=== PATIENT | male | born 1990 | race African-American/Black ===

== ENCOUNTER 2022-03-30 14:28 | Emergency (ER) | payer OTHER ==
[2022-03-30 15:04] VITALS: BP 114/63; PULSE 62; TEMP 98; BMI 22.3
== END 2022-03-30 17:35 | disposition home or self-care (01) ==
LOC: JER 14:28
DX: F14.10 Cocaine abuse, uncomplicated (principal)
CPT/HCPCS: 99281-25

== ENCOUNTER 2022-03-30 18:01 | Inpatient (IN) | payer OTHER ==
[2022-03-30 18:38] VITALS: BMI 19.9
[2022-03-30] MEDS ORDERED: P-EPHED 60MG/TRIPROLIDI 2.5MG TABLET PO PRN (18:58)
[2022-03-30] MEDS ORDERED: MAG HYDROX/AL HYDROX/SIMETH 30 ML UNIT-DOSE CUP PO PRN (18:58)
[2022-03-30] MEDS ORDERED: ACETAMINOPHEN 325 MG TABLET (FP) PO PRN (18:58)
[2022-03-30] MEDS ORDERED: MAGNESIUM HYDROX 2400MG/30ML ORAL SUSPENSION 30 ML CUP PO PRN (18:58)
[2022-03-30] MEDS ORDERED: IBUPROFEN 400 MG TABLET (FP) PO PRN (18:58)
[2022-03-30] MEDS ORDERED: MAGNESIUM CITRATE 300 ML BOTTLE PO PRN (18:58)
[2022-03-30] MEDS ORDERED: LOPERAMIDE HCL 2 MG CAPSULE PO PRN (18:58)
[2022-03-30] MEDS ORDERED: guaiFENesin 200 MG/10 ML 10 ML UNIT-DOSE CUPS PO PRN (18:58)
[2022-03-30] MEDS ORDERED: NICOTINE 10 MG CARTRIDGE (INHALER) IH PRN (18:58)
[2022-03-30] MEDS ORDERED: MELATONIN 5 MG TABLETS PO SCH (22:00)
[2022-03-30] MEDS ORDERED: THIAMINE HCL 100 MG TABLET (FP) PO SCH (22:00)
[2022-03-31] MEDS: hydrOXYzine PAMOATE 25 MG CAPSULE (FP) PO SCH ×5 (02:49→14:35)
[2022-03-31 03:03] VITALS: BP 126/71; PULSE 60; TEMP 97.3
[2022-03-31] MEDS ORDERED: PRENATAL VITAMINS W/ FOLIC ACID TABLET (FP) PO SCH (10:00)
[2022-03-31] MEDS ORDERED: NICOTINE 7 MG/24 HOURS TOPICAL PATCH TD SCH (10:00)
== END 2022-03-31 17:52 | disposition left against medical advice (07) | DRG 770 ==
LOC: YASAS 18:01 → Y5N 03-31 02:18
PROVIDERS: ADMIT Allergy & Immunology; ATTEND Psychiatry & Neurology Pain Medicine
PROC: HZ42ZZZ Group Counseling for Substance Abuse Treatment, Cognitive-Behavioral (ICD-10-PCS; principal; 2022-03-31)
DX: F14.20 Cocaine dependence, uncomplicated (principal); F25.9 Schizoaffective disorder, unspecified
CPT/HCPCS: C9803-CS; U0003; U0005